=== PATIENT | male | born 1990 ===

== ENCOUNTER 2019-09-13 21:06 | Emergency (ER) | payer SELFPAY ==
[~2019-09-13] VITALS: Ht 165.1 cm; Wt 75.0 kg
[2019-09-13 21:25] VITALS: BP 119/84
[2019-09-13] MEDS ORDERED: OMEP10 PO (21:33)
== END 2019-09-14 00:30 | disposition left against medical advice (07) ==
LOC: EMS 21:07
DX: R10.9 Unspecified abdominal pain (principal); Z53.21 Procedure and treatment not carried out due to patient leaving prior to being seen by health care provider